=== PATIENT | female | born 1935 | race Caucasian/White ===

== ENCOUNTER 2017-09-03 05:12 | Inpatient (IN) | payer MEDICARE, BC ==
[~2017-09-03] VITALS: Ht 162.6 cm; Wt 49.4 kg
[2017-09-03] MEDS ORDERED: ROSU10TA PO (05:26)
[2017-09-03] MEDS ORDERED: LEVO100T PO (05:26)
[2017-09-03] MEDS ORDERED: AMLO10TA2 PO (05:26)
[2017-09-03] MEDS ORDERED: LISI10TA5 PO (05:26)
[2017-09-03] MEDS ORDERED: IV NORMAL SALINE 1000 ML BAG IV ONE ×2 (05:45→06:30)
[2017-09-03] MEDS ORDERED: ONDANSETRON 4 MG/2 ML VIAL IV ONE (05:45)
[2017-09-03 05:58] LABS: BASOPHILS # (AUTO) 0.1 K/uL (0.0-8.0); BASOPHILS % (AUTO) 0.8 % (0.0-2.0); EOSINOPHILS % (AUTO) 0.2 % (0.0-7.0); HEMATOCRIT 43.6 % (37-47); HEMOGLOBIN 14.9 G/DL (12.0-16.0); LYMPHOCYTES # (AUTO) 0.9 K/UL (0.8-4.8); LYMPHOCYTES % (AUTO) 8.2 % (20.5-51.5); MEAN CORPUSCULAR HEMOGLOBIN 31.2 UUG (27.0-31.0); MEAN CORPUSCULAR HGB CONC 34 g/dL (32.0-37.0); MEAN CORPUSCULAR VOLUME 91.3 FL (81.0-99.0); MONOCYTES # (AUTO) 0.6 K/UL (0.1-1.30); MONOCYTES % (AUTO) 5.5 % (0.0-11.0); NEUTROPHILS # (AUTO) 9.9 K/UL (1.8-8.9); NEUTROPHILS % (AUTO) 85.3 % (38.5-71.5); PLATELET COUNT (AUTO) 395 K/UL (150-450); RED BLOOD CELL COUNT(AUTO) 4.78 MIL/UL (4.2-5.4); WHITE BLOOD COUNT (AUTO) 11.5 K/UL (4.0-11.2)
[2017-09-03] MEDS ORDERED: HYDROMORPHONE 1 MG/1 ML DISP.SYRIN IV ONE (06:00)
--- NOTE | 2017-09-03 06:00 | NUR ---
Pt to room via w/c. Pt c/o sudden errupt vomiting, denies feeling actual nausea prior to vomiting and denies abd pain. Pt c/o severe BLE cramping. Pt seen by Dr. Rm. IV established. Labs drawn and sent. Pt medicated for discomfort, will monitor for effects of medication. Fluid bolus infusing freely to gravity. Pt repositioned for comfort. Family at bedside.
[2017-09-03 06:09] LABS: ALANINE AMINOTRANSFERASE 18 U/L (14-59); ALKALINE PHOSPHATASE 59 U/L (50-136); ASPARTATE AMINOTRANSFERASE 19 U/L (15-37); BILIRUBIN,DIRECT 0.1 mg/dL (0.0-0.2); BILIRUBIN,TOTAL 0.7 mg/dL (0.2-1.0); CARBON DIOXIDE 33 mmol/L (21-32); CHLORIDE 98 mmol/L (98-107); CREATININE 3.5 mg/dL (0.6-1.3); GLUCOSE 180 mg/dL (74-106); LIPASE 121 U/L (73-393); POTASSIUM 3.8 mmol/L (3.5-5.1); UREA NITROGEN, BLOOD 29 mg/dL (7-18)
[2017-09-03] MEDS ORDERED: ONDANSETRON 4 MG/2 ML VIAL ONE (06:09)
[2017-09-03] MEDS ORDERED: HYDROMORPHONE 2 MG/1 ML DISP.SYRIN ONE (06:09)
--- NOTE | 2017-09-03 06:19 | NUR ---
Fluid bolus completed. Dr. Rm at bedside speaking with pt about further plan of care
--- NOTE | 2017-09-03 06:24 | NUR ---
First liter bolus completed. Second liter fluid bolus infusing freely to gravity.
[2017-09-03] MEDS ORDERED: POTASSIUM CHLORIDE 20 MEQ TAB.PRT.SR PO ONE (06:30)
[2017-09-03] MEDS ORDERED: POTASSIUM CHLORIDE 20 MEQ TAB.PRT.SR ONE (06:40)
--- NOTE | 2017-09-03 07:12 | NUR ---
Dr. Gaviria speaking with pt's PMD, Dr. Conklin
--- NOTE | 2017-09-03 07:16 | NUR ---
EPIC consulting sme paged for Dr. Gaviria
--- NOTE | 2017-09-03 07:51 | NUR ---
Spoke with nursing supervisor mill regarding m/s bed assignment, pt to be held in ER until further notice due to lack of staffing.
--- NOTE | 2017-09-03 09:10 | NUR ---
pt was transfered to m/s floor , to room #210. report was given to rn m/s.
--- NOTE | 2017-09-03 10:28 | NUR ---
CALCIUM CARBONATE Q6H O6H PRN PER DR DIXON
[2017-09-03] MEDS ORDERED: CALCIUM CARBONATE 500 MG TAB.CHEW PO PRN (10:30)
[2017-09-03 11:27] VITALS: BP 109/67
--- NOTE | 2017-09-03 13:11 | NUR ---
per dr johnson ns ivf at 80ml/hr, tylenol 650mg po q6h prn, zofran 4mg iv q6hprn, protonix 40 mg po daily, KUB of abdomen, Morphine 2mg IV q4h prn, DVT SCD pumps on.
[2017-09-03] MEDS ORDERED: IV NS 1000 ML 1,000 ML IV PRN (13:15)
[2017-09-03] MEDS ORDERED: ONDANSETRON 4 MG/2 ML VIAL IV PRN (13:15)
[2017-09-03] MEDS ORDERED: ACETAMINOPHEN 325 MG TABLET PO PRN (13:15)
--- NOTE | 2017-09-03 13:23 | NUR ---
went to the pt's room, pt is upset that doctor has not seen the pt. Advised that is busy at the moment, but IV fluids and medication for the ot's nausea has been ordered and I can bring them promptly. "I want to go to my doctor, its not you, I just need to be treated". Tried to advise the pt about KUB, pt is refusing to listen to the nurse. Advised Roxanne Horn and the charge nurse. Pt refusing to listen to the nurse and receive education.
--- NOTE | 2017-09-03 13:40 | NUR ---
CHARGE NURSE WENT TO TALK TO THE PT. PT DOES NOT LET THE CHARGE SPEAK, PT STATES "NO ONE CAME TO SEE ME, ALL NURSES ARE SWEET. BUT I NEED A DOCTOR". PT'S SON CAME TO [employer] THE PT, PT REFUSES TO STAY AT THE HOSPITAL. PT SIGNED AMA PAPER, BUT REFUSED ALL EDUCATION.
--- NOTE | 2017-09-03 13:45 | NUR ---
PT REFUSES ALL MEDICATION AND INTERVENTIONS. PT LEFT WITH HER SON VIA WHEELCHAIR WITH VENDING STAND SUPERVISOR. NO DIZZINESS NOTE, PT IS ALERT AND ORIENTED. Addendum: 09/03/17 at 1440 by JUAN TAPIA RN NIKOLAS Castro
[2017-09-04] MEDS ORDERED: PANTOPRAZOLE SODIUM 40 MG TABLET.DR PO SCH (07:00)
== END 2017-09-03 14:00 | disposition left against medical advice (07) | DRG 684 ==
LOC: ER 05:19 → TELE 08:54
PROVIDERS: ADMIT Internal Medicine; ATTEND Internal Medicine
DX: N17.9 Acute kidney failure, unspecified (principal); E86.0 Dehydration; E03.9 Hypothyroidism, unspecified; E78.5 Hyperlipidemia, unspecified; Z90.710 Acquired absence of both cervix and uterus; Z88.6 Allergy status to analgesic agent; Z88.0 Allergy status to penicillin; Z79.899 Other long term (current) drug therapy; R25.2 Cramp and spasm; I10 Essential (primary) hypertension
CPT/HCPCS: 36415; 83690; 85025; 93005; A4663; J1170; J2405; J7030